=== PATIENT | female | born 1965 | race Caucasian/White ===

== ENCOUNTER → 2020-04-17 | Outpatient (CLI) | payer BC ==
[2020-04-17 13:31] LABS: BASOPHILS % 0.7 % (0.0-2.0); HEMATOCRIT. 35.8 % (36.0-48.0); HEMOGLOBIN. 11.8 g/dL (12.0-16.0); LYMPHOCYTES % 24.5 % (20.0-50.0); MEAN CORPUSCULAR HEMOGLOBIN 27.4 pg (28.0-32.0); MEAN CORPUSCULAR VOLUME 83.4 fL (81.0-99.0); MEAN PLATELET VOLUME 8.7 fl (7.4-10.4); NEUTROPHILS % 63.8 % (40.0-76.0); PLATELET 331 x1000/uL (130-400); RED CELL DISTRIBUTION WIDTH 14.4 % (11.6-14.6)
[2020-04-17 13:38] LABS: CHLORIDE 105 mEq/L (98-107)
[2020-04-17 13:45] LABS: CLARITY URINE CLOUDY (CLEAR); COLOR URINE YELLOW (YELLOW); KETONES URINE NEGATIVE (NEGATIVE); LDL CHOLESTEROL 157 mg/dL (5-100); LEUKOCYTE ESTERASE URINE 2+ (NEGATIVE); NITRITE URINE NEGATIVE (NEGATIVE); OCCULT BLOOD URINE 3+ (NEGATIVE); PH URINE 5.5 (4.5-8.0); PROTEIN URINE 2+ (NEGATIVE); SPECIFIC GRAVITY URINE 1.023 (1.005-1.030); UROBILINOGEN URINE 0.2 E.U./dL (0.2-1.0)
[2020-04-17 13:47] LABS: HDL CHOLESTEROL 64 mg/dL (40-59)
[2020-04-17 13:52] LABS: T4 FREE 0.91 ng/dL (0.76-1.46)
[2020-04-17 14:08] LABS: FOLIC ACID (FOLATE) SERUM 18.4 ng/mL (>5.38)
[2020-04-18 08:09] LABS: THYROID PEROXIDASE ANTIBODY < 9 IU/mL (0-34); VITAMIN D 25-OH 37.2 ng/mL (30.0-100.0)
[2020-04-18 08:09] LABS: MICROALBUMIN RANDOM URINE 214.3 ug/mL (Not Estab.)
== END | disposition home or self-care (01) ==
LOC: LAB 12:47
PROVIDERS: ATTEND Family Medicine
DX: E03.9 Hypothyroidism, unspecified (principal); E11.9 Type 2 diabetes mellitus without complications; R42 Dizziness and giddiness; E78.5 Hyperlipidemia, unspecified; R53.83 Other fatigue; Z12.11 Encounter for screening for malignant neoplasm of colon; Z13.29 Encounter for screening for other suspected endocrine disorder
CPT/HCPCS: 36415; 80053; 80061; 81003; 82043; 82306; 82570; 82607; 82746; 83036; 84439; 84443; 84479; 85025; 86376

== ENCOUNTER → 2020-08-26 | Outpatient (CLI) | payer BC ==
[~2020-08-26] MED LIST: SULF-292 MT
[2020-08-26 11:30] LABS: CHLORIDE 107 mEq/L (98-107)
[2020-08-26 11:37] LABS: LDL CHOLESTEROL 113 mg/dL (5-100)
[2020-08-26 11:38] LABS: HDL CHOLESTEROL 59 mg/dL (40-59)
[2020-08-26 11:40] LABS: T4 FREE 0.83 ng/dL (0.76-1.46)
[2020-08-26 13:36] LABS: CLARITY URINE CLEAR (CLEAR); COLOR URINE YELLOW (YELLOW); KETONES URINE NEGATIVE (NEGATIVE); LEUKOCYTE ESTERASE URINE 1+ (NEGATIVE); NITRITE URINE NEGATIVE (NEGATIVE); OCCULT BLOOD URINE 2+ (NEGATIVE); PH URINE 5.5 (4.5-8.0); PROTEIN URINE 2+ (NEGATIVE); SPECIFIC GRAVITY URINE 1.022 (1.005-1.030); UROBILINOGEN URINE 0.2 E.U./dL (0.2-1.0)
== END | disposition home or self-care (01) ==
LOC: LAB 10:22
PROVIDERS: ATTEND Physician Assistant Medical
DX: E11.9 Type 2 diabetes mellitus without complications (principal); E78.5 Hyperlipidemia, unspecified; E03.9 Hypothyroidism, unspecified; E55.9 Vitamin D deficiency, unspecified; R80.9 Proteinuria, unspecified; N39.0 Urinary tract infection, site not specified
CPT/HCPCS: 36415; 80053; 80061; 81003; 82306; 83036; 84439; 84443; 84481

== ENCOUNTER → 2020-08-29 | Outpatient (CLI) | payer BC | END | disposition home or self-care (01) | LOC: MAMMO 09:35 | PROVIDERS: ATTEND Family Medicine | DX: Z12.31 Encounter for screening mammogram for malignant neoplasm of breast (principal); Z20.822 Contact with and (suspected) exposure to COVID-19; N64.89 Other specified disorders of breast; R59.0 Localized enlarged lymph nodes | CPT/HCPCS: 77067; 87426 ==

== ENCOUNTER 2020-09-15 13:28 | Emergency (ER) | payer BC ==
[~2020-09-15] VITALS: Ht 162.6 cm; Wt 65.0 kg
[2020-09-15] MEDS ORDERED: IBUPROFEN 400MG TABLET PO ONE (13:45)
[2020-09-15] MEDS ORDERED: SULF-292 MT (15:04)
[2020-09-15 15:10] VITALS: BP 132/77
== END 2020-09-15 15:11 | disposition home or self-care (01) ==
LOC: ER 13:28
DX: L03.115 Cellulitis of right lower limb (principal); S93.691A Other sprain of right foot, initial encounter; W11.XXXA Fall on and from ladder, initial encounter; Y93.89 Activity, other specified; Y92.89 Other specified places as the place of occurrence of the external cause
CPT/HCPCS: 73630; 99283

== ENCOUNTER 2020-12-04 11:00 | Inpatient (IN) | payer BC ==
[~2020-12-04] VITALS: Ht 160 cm; Wt 65.4 kg
[2020-12-04 11:40] LABS: BASOPHILS % 0.6 % (0.0-2.0); EOSINOPHILS % 0.8 % (0.0-5.0); HEMATOCRIT. 36.9 % (36.0-48.0); HEMOGLOBIN. 12.5 g/dL (12.0-16.0); LYMPHOCYTES % 22.2 % (20.0-50.0); MEAN CORPUSCULAR HEMOGLOBIN 27.8 pg (28.0-32.0); MEAN PLATELET VOLUME 7.9 fl (7.4-10.4); MONOCYTES % 11.1 % (2.0-8.0); NEUTROPHILS % 65.3 % (40.0-76.0); PLATELET 370 x1000/uL (130-400); RED BLOOD CELL COUNT 4.49 mill/uL (4.2-5.4); RED CELL DISTRIBUTION WIDTH 14.6 % (11.6-14.6)
[2020-12-04 11:46] LABS: CHLORIDE 108 mEq/L (98-107)
[2020-12-04] MEDS ORDERED: ENALAPRIL 2.5MG/2ML VIAL 2ML IV ONE (13:45)
[2020-12-04] MEDS ORDERED: ENALAPRIL 1.25MG/ML VIAL 1ML IV ONE ×2 (13:45→14:45)
[2020-12-04] MEDS ORDERED: FUROSEMIDE 40MG/4ML VIAL IVP ONE (13:45)
[2020-12-04 14:02] LABS: BG BASE EXCESS -2.9 mmol/L (-2.0-2.0); BG CARBOXYHEMOGLOBIN 0.4 % (0.5-1.5); BG DEOXYHEMOGLOBIN 2.1 % (0.0-5.0); BG FRACTION INSPIRED OXYGEN 30; BG HCO3 ACT 22.6 mmol/L (22.0-26.0); BG METHEMOGLOBIN 0.3 % (0.0-1.5); BG OXYGEN SATURATION 97.9 % (92.0-98.5); BG OXYHEMOGLOBIN 97.2 % (94.0-97.0); BG PCO2 41.6 mmHg (35.0-45.0); BG PH 7.352 (7.350-7.450); BG PO2 104.1 mmHg (75.0-100.0); BG SAMPLE SITE RIGHT RADIAL; BG TOTAL HEMOGLOBIN 13.8 g/dL (12.0-18.0); BG VENT MODE NASAL CANNULA
[2020-12-04] MEDS ORDERED: CLONIDINE 0.1MG TABLET PO PRN (15:00)
[2020-12-04] MEDS ORDERED: ACETAMINOPHEN 325MG TABLET PO PRN (15:00)
[2020-12-04] MEDS ORDERED: IPRATROPIUM/ALBUTEROL 0.5-3(2.5)MG/3ML NEB HHN PRN (15:00)
[2020-12-04] MEDS ORDERED: ONDANSETRON HCL 4MG/2ML INJ IV PRN (15:00)
[2020-12-04] MEDS ORDERED: DOCUSATE SODIUM 100MG CAPSULE PO PRN (15:00)
[2020-12-04] MEDS ORDERED: LORAZEPAM 0.5MG TABLET PO PRN (15:00)
[2020-12-04] MEDS ORDERED: HYDROCODONE/ACETAMINOPHEN 5/325MG TABLET PO PRN (15:00)
[2020-12-04] MEDS: FUROSEMIDE 40MG/4ML VIAL IV SCH ×2 (15:21→17:00)
[2020-12-04 17:35] VITALS: BP 142/86
[2020-12-04 17:36] VITALS: BP 142/80
[2020-12-04 20:06] VITALS: BP 142/88
[2020-12-04 22:21] VITALS: BP 135/83
[2020-12-05] VITALS (15 sets, daily range): BP systolic 95–132; BP diastolic 58–81
[2020-12-05] MEDS ORDERED: LEVO25TA7 PO (04:56)
[2020-12-05 06:26] LABS: BASOPHILS % 0.8 % (0.0-2.0); EOSINOPHILS % 0.5 % (0.0-5.0); HEMATOCRIT. 38.2 % (36.0-48.0); HEMOGLOBIN. 12.8 g/dL (12.0-16.0); LYMPHOCYTES % 17.1 % (20.0-50.0); MEAN CORPUSCULAR HEMOGLOBIN 27.3 pg (28.0-32.0); MEAN CORPUSCULAR VOLUME 81.4 fL (81.0-99.0); MEAN PLATELET VOLUME 8.5 fl (7.4-10.4); MONOCYTES % 10.1 % (2.0-8.0); NEUTROPHILS % 71.5 % (40.0-76.0); PLATELET 370 x1000/uL (130-400); RED BLOOD CELL COUNT 4.69 mill/uL (4.2-5.4); RED CELL DISTRIBUTION WIDTH 14.3 % (11.6-14.6)
[2020-12-05 06:31] LABS: CHLORIDE 106 mEq/L (98-107)
[2020-12-05] MEDS ORDERED: POTASSIUM CHLORIDE 20MEQ TABLET SR PO NR (08:00)
[2020-12-05] MEDS ORDERED: PHENYLEPHRINE 100MCG/ML 10ML VIAL (CATH LAB) IV ONE (08:03)
[2020-12-05] MEDS ORDERED: HEPARIN SODIUM 1,000 UNIT/1ML VIAL IV ONE (08:03)
[2020-12-05] MEDS ORDERED: NITROGLYCERIN 50MCG/ML 10ML VIAL (CATH LAB) IV ONE (08:03)
[2020-12-05] MEDS ORDERED: NICARDIPINE 100MCG/ML 10ML VIAL (CATH LAB) IV ONE (08:03)
[2020-12-05 08:47] LABS: *BARBITURATES SCREEN URINE NEGATIVE (NEGATIVE)
[2020-12-05 08:48] LABS: *AMPHETAMINES SCREEN URINE NEGATIVE (NEGATIVE); *BENZODIAZEPINES SCREEN URINE NEGATIVE (NEGATIVE); *COCAINE SCREEN URINE NEGATIVE (NEGATIVE); METHADONE URINE SCREEN NEGATIVE (NEGATIVE); OPIATES URINE SCREEN NEGATIVE (NEGATIVE); PHENCYCLIDINE URINE SCREEN NEGATIVE (NEGATIVE)
[2020-12-05 08:49] LABS: CANNABINOID URINE SCREEN NEGATIVE (NEGATIVE)
[2020-12-05] MEDS: FUROSEMIDE 40MG/4ML VIAL IV SCH ×2 (09:13→16:34)
[2020-12-05] MEDS ORDERED: FENTANYL CITRATE/PF 50MCG/ML 2ML VIAL ONE (11:21)
[2020-12-05] MEDS ORDERED: LIDOCAINE HCL 1% 20ML VIAL (Pyxis) INJ ONE (11:22)
[2020-12-05] MEDS ORDERED: MIDAZOLAM HCL 2 MG/2 ML VIAL ONE (11:22)
[2020-12-05] MEDS ORDERED: IODIXANOL 320MG/ML 100 ML BOTTLE IV ONE (11:23)
[2020-12-05] MEDS ORDERED: IOHEXOL-300 100 ML BOTTLE ONE (12:15)
[2020-12-05] MEDS ORDERED: ATROPINE SULFATE 0.1MG/ML 10ML DISP.SYRIN ONE (12:26)
[2020-12-05] MEDS ORDERED: ASPIRIN 325MG TABLET ONE (12:32)
[2020-12-05] MEDS ORDERED: CLOPIDOGREL 75MG TABLET ONE (12:32)
[2020-12-05] MEDS: SPIRONOLACTONE 25MG TABLET PO SCH (13:11)
[2020-12-05] MEDS ORDERED: ATROPINE SULFATE 1MG/10ML SYR IV PRN (13:15)
[2020-12-05] MEDS ORDERED: LEVOTHYROXINE SODIUM 25MCG TABLET PO SCH (15:30)
[2020-12-05] MEDS: LEVOTHYROXINE SODIUM 25MCG TABLET PO SCH (16:35)
[2020-12-05] MEDS: CARVEDILOL 3.125 MG TABLET PO SCH (21:00)
[2020-12-06] VITALS (12 sets, daily range): BP systolic 91–110; BP diastolic 53–66
[2020-12-06 05:59] LABS: BASOPHILS % 0.4 % (0.0-2.0); EOSINOPHILS % 1.5 % (0.0-5.0); HEMATOCRIT. 39.8 % (36.0-48.0); HEMOGLOBIN. 13.1 g/dL (12.0-16.0); LYMPHOCYTES % 16.1 % (20.0-50.0); MEAN PLATELET VOLUME 8.4 fl (7.4-10.4); MONOCYTES % 13.8 % (2.0-8.0); NEUTROPHILS % 68.2 % (40.0-76.0); PLATELET 356 x1000/uL (130-400); RED BLOOD CELL COUNT 4.86 mill/uL (4.2-5.4); RED CELL DISTRIBUTION WIDTH 14.8 % (11.6-14.6)
[2020-12-06 06:32] LABS: HEPATITIS B SURFACE ANTIGEN NEGATIVE
[2020-12-06 07:01] LABS: HEPATITIS A AB IGM NEGATIVE (NEGATIVE)
[2020-12-06] MEDS ORDERED: POTASSIUM CHLORIDE 20MEQ/PACKET PO SCH (08:45)
[2020-12-06] MEDS: SPIRONOLACTONE 25MG TABLET PO SCH (08:50)
[2020-12-06] MEDS: LISINOPRIL 5MG TABLET PO SCH (08:50)
[2020-12-06] MEDS: FUROSEMIDE 40MG/4ML VIAL IV SCH ×2 (08:59→17:01)
[2020-12-06] MEDS: ASPIRIN 81MG TABLET PO SCH (08:59)
[2020-12-06] MEDS: LEVOTHYROXINE SODIUM 25MCG TABLET PO SCH (08:59)
[2020-12-06] MEDS: CARVEDILOL 3.125 MG TABLET PO SCH ×2 (09:00→21:00)
[2020-12-06] MEDS: CLOPIDOGREL 75MG TABLET PO SCH (09:00)
[2020-12-06] MEDS ORDERED: ASPI-1160 PO (11:16)
[2020-12-06] MEDS ORDERED: FURO40TA5 MT (11:16)
[2020-12-06] MEDS ORDERED: COR3 PO (11:16)
[2020-12-06] MEDS ORDERED: CLOP75TA15 PO (11:16)
[2020-12-06] MEDS ORDERED: LISI-186 PO (11:16)
[2020-12-06] MEDS ORDERED: SPIR25TA PO (11:16)
[2020-12-06 21:30] LABS: CLARITY URINE CLEAR (CLEAR); COLOR URINE YELLOW (YELLOW); KETONES URINE NEGATIVE (NEGATIVE); LEUKOCYTE ESTERASE URINE 1+ (NEGATIVE); NITRITE URINE NEGATIVE (NEGATIVE); OCCULT BLOOD URINE TRACE (NEGATIVE); PROTEIN URINE NEGATIVE (NEGATIVE); UROBILINOGEN URINE 0.2 E.U./dL (0.2-1.0)
[2020-12-07] VITALS (13 sets, daily range): BP systolic 95–116; BP diastolic 30–77
[2020-12-07 06:01] LABS: BASOPHILS % 0.7 % (0.0-2.0); HEMATOCRIT. 38.7 % (36.0-48.0); LYMPHOCYTES % 23.1 % (20.0-50.0); MEAN CORPUSCULAR HEMOGLOBIN 27.7 pg (28.0-32.0); MEAN CORPUSCULAR VOLUME 82.4 fL (81.0-99.0); MEAN PLATELET VOLUME 8.4 fl (7.4-10.4); MONOCYTES % 13.1 % (2.0-8.0); NEUTROPHILS % 61.1 % (40.0-76.0); PLATELET 353 x1000/uL (130-400); RED BLOOD CELL COUNT 4.69 mill/uL (4.2-5.4); RED CELL DISTRIBUTION WIDTH 14.5 % (11.6-14.6)
[2020-12-07 06:17] LABS: CHLORIDE 102 mEq/L (98-107)
[2020-12-07] MEDS: LEVOTHYROXINE SODIUM 50MCG TABLET PO SCH (07:03)
[2020-12-07] MEDS: SPIRONOLACTONE 25MG TABLET PO SCH (09:00)
[2020-12-07] MEDS: LISINOPRIL 5MG TABLET PO SCH (09:00)
[2020-12-07] MEDS: CARVEDILOL 3.125 MG TABLET PO SCH ×2 (09:00→20:30)
[2020-12-07] MEDS: ASPIRIN 81MG TABLET PO SCH (09:09)
[2020-12-07] MEDS: FUROSEMIDE 40MG/4ML VIAL IV SCH ×2 (09:09→17:02)
[2020-12-07] MEDS: CLOPIDOGREL 75MG TABLET PO SCH (09:09)
[2020-12-07] MEDS: POTASSIUM CHLORIDE 20MEQ TABLET SR PO SCH (09:10)
[2020-12-08] VITALS (9 sets, daily range): BP systolic 102–139; BP diastolic 62–88
[2020-12-08] MEDS: LEVOTHYROXINE SODIUM 50MCG TABLET PO SCH (06:03)
[2020-12-08 07:44] LABS: BASOPHILS % 0.5 % (0.0-2.0); EOSINOPHILS % 2.3 % (0.0-5.0); HEMATOCRIT. 39.6 % (36.0-48.0); HEMOGLOBIN. 13.2 g/dL (12.0-16.0); LYMPHOCYTES % 26.3 % (20.0-50.0); MEAN CORPUSCULAR HEMOGLOBIN 27.4 pg (28.0-32.0); MEAN CORPUSCULAR VOLUME 82.3 fL (81.0-99.0); MEAN PLATELET VOLUME 8.5 fl (7.4-10.4); MONOCYTES % 13.1 % (2.0-8.0); NEUTROPHILS % 57.8 % (40.0-76.0); PLATELET 381 x1000/uL (130-400); RED BLOOD CELL COUNT 4.81 mill/uL (4.2-5.4); RED CELL DISTRIBUTION WIDTH 14.6 % (11.6-14.6)
[2020-12-08 08:08] LABS: *CREATININE RANDOM URINE 28.5 mg/dL (Not Estab.); MICROALBUMIN RANDOM URINE <3.0 ug/mL (Not Estab.)
[2020-12-08 08:27] LABS: CHLORIDE 98 mEq/L (98-107)
[2020-12-08] MEDS: CARVEDILOL 3.125 MG TABLET PO SCH (08:27)
[2020-12-08] MEDS: LISINOPRIL 5MG TABLET PO SCH (08:28)
[2020-12-08] MEDS: SPIRONOLACTONE 25MG TABLET PO SCH (08:38)
[2020-12-08] MEDS: ASPIRIN 81MG TABLET PO SCH (08:38)
[2020-12-08] MEDS: POTASSIUM CHLORIDE 20MEQ TABLET SR PO SCH (08:38)
[2020-12-08] MEDS: CLOPIDOGREL 75MG TABLET PO SCH (08:38)
[2020-12-08] MEDS ORDERED: ATOR20TA65 MT (08:57)
[2020-12-08] MEDS ORDERED: FUROSEMIDE 40MG TABLET PO SCH (18:00)
[2020-12-08] MEDS ORDERED: CARVEDILOL 6.25 MG TABLET PO SCH (21:00)
== END 2020-12-08 15:05 | disposition home or self-care (01) | DRG 246 ==
LOC: ER 11:00 → 3WST 13:50 → EDBEDREQ 13:54 → EDBEDREQTM 13:54 → ENRESERV 14:47 → EDBEDREQSVC 15:01
PROVIDERS: ADMIT Internal Medicine; ATTEND Internal Medicine
PROC: B2111ZZ Fluoroscopy of Multiple Coronary Arteries using Low Osmolar Contrast (ICD-10-PCS; principal; 2020-12-05)
PROC: 027034Z Dilation of Coronary Artery, One Artery with Drug-eluting Intraluminal Device, Percutaneous Approach (ICD-10-PCS; 2020-12-05)
PROC: 4A023N7 Measurement of Cardiac Sampling and Pressure, Left Heart, Percutaneous Approach (ICD-10-PCS; 2020-12-05)
DX: I11.0 Hypertensive heart disease with heart failure (principal); J96.01 Acute respiratory failure with hypoxia; N17.9 Acute kidney failure, unspecified; N13.30 Unspecified hydronephrosis; E87.1 Hypo-osmolality and hyponatremia; N13.2 Hydronephrosis with renal and ureteral calculous obstruction; I50.23 Acute on chronic systolic (congestive) heart failure; I42.0 Dilated cardiomyopathy; I25.10 Atherosclerotic heart disease of native coronary artery without angina pectoris; E78.1 Pure hyperglyceridemia; E03.9 Hypothyroidism, unspecified; I16.0 Hypertensive urgency; E87.6 Hypokalemia; E11.9 Type 2 diabetes mellitus without complications; I27.29 Other secondary pulmonary hypertension; J40 Bronchitis, not specified as acute or chronic; I45.9 Conduction disorder, unspecified; K57.30 Diverticulosis of large intestine without perforation or abscess without bleeding; K80.20 Calculus of gallbladder without cholecystitis without obstruction; Z20.822 Contact with and (suspected) exposure to COVID-19; Z88.2 Allergy status to sulfonamides
CPT/HCPCS: 36415; 36600; 71045; 71275; 74176; 76700; 78227; 80048; 80053; 80061; 80076; 80305; 81003; 82043; 82375; 82570; 82805; 83036; 83880; 84145; 84443; 84484; 85025; 85347; 85379; 86705; 86709; 86803; 87340; 87426; 92928; 93005; 93306; 93458; 93970; 99285; A9537; C1769; C1874; C1887; C1893; J0461; J1200; J1644; J1940; J2250; J2370; J2405; J3010; J3490; Q9967

== ENCOUNTER → 2021-02-09 | Outpatient (CLI) | payer BC ==
[~2021-02-09] MED LIST changes: +ASPI-1160 PO; +ATOR20TA65 MT; +CLOP75TA15 PO; +COR3 PO; +FURO40TA5 MT; +LEVO25TA7 PO; +LISI-186 PO; +SPIR25TA PO; -SULF-292 MT
== END | disposition home or self-care (01) ==
LOC: RAD 10:13
PROVIDERS: ATTEND Urology
DX: N20.2 Calculus of kidney with calculus of ureter (principal); K80.20 Calculus of gallbladder without cholecystitis without obstruction
CPT/HCPCS: 74018

== ENCOUNTER → 2021-02-20 | Outpatient (CLI) | payer BC ==
[2021-02-20 11:21] LABS: BASOPHILS % 0.4 % (0.0-2.0); EOSINOPHILS % 0.8 % (0.0-5.0); HEMATOCRIT. 35.6 % (36.0-48.0); HEMOGLOBIN. 11.8 g/dL (12.0-16.0); LYMPHOCYTES % 25.6 % (20.0-50.0); MEAN CORPUSCULAR HEMOGLOBIN 27.8 pg (28.0-32.0); MEAN CORPUSCULAR VOLUME 83.7 fL (81.0-99.0); MEAN PLATELET VOLUME 8.5 fl (7.4-10.4); MONOCYTES % 11.4 % (2.0-8.0); NEUTROPHILS % 61.8 % (40.0-76.0); PLATELET 319 x1000/uL (130-400); RED BLOOD CELL COUNT 4.26 mill/uL (4.2-5.4); RED CELL DISTRIBUTION WIDTH 15.1 % (11.6-14.6)
[2021-02-20 11:23] LABS: CLARITY URINE CLEAR (CLEAR); COLOR URINE YELLOW (YELLOW); KETONES URINE NEGATIVE (NEGATIVE); LEUKOCYTE ESTERASE URINE 2+ (NEGATIVE); NITRITE URINE NEGATIVE (NEGATIVE); OCCULT BLOOD URINE NEGATIVE (NEGATIVE); PH URINE 6.5 (4.5-8.0); PROTEIN URINE NEGATIVE (NEGATIVE); SPECIFIC GRAVITY URINE 1.009 (1.005-1.030); UROBILINOGEN URINE 0.2 E.U./dL (0.2-1.0)
[2021-02-20 11:29] LABS: CHLORIDE 105 mEq/L (98-107)
[2021-02-20 11:36] LABS: HDL CHOLESTEROL 54 mg/dL (40-59); LDL CHOLESTEROL 73 mg/dL (5-100)
[2021-02-20 11:38] LABS: T4 FREE 1.22 ng/dL (0.76-1.46)
== END | disposition home or self-care (01) ==
LOC: LAB 10:44
PROVIDERS: ATTEND Family Medicine
DX: E11.21 Type 2 diabetes mellitus with diabetic nephropathy (principal); I10 Essential (primary) hypertension; E03.9 Hypothyroidism, unspecified; E78.5 Hyperlipidemia, unspecified; E55.9 Vitamin D deficiency, unspecified
CPT/HCPCS: 36415; 80053; 80061; 81003; 82306; 83036; 84439; 84443; 84481; 85025

== ENCOUNTER → 2021-03-04 | Outpatient (CLI) | payer BC | END | disposition home or self-care (01) | LOC: CARD 09:42 | PROVIDERS: ATTEND Internal Medicine | DX: I34.0 Nonrheumatic mitral (valve) insufficiency (principal); I42.0 Dilated cardiomyopathy; I51.7 Cardiomegaly; I50.9 Heart failure, unspecified | CPT/HCPCS: 93306 ==

== ENCOUNTER 2021-04-14 06:25 | Inpatient (IN) | payer BC ==
[~2021-04-14] VITALS: Ht 160 cm; Wt 65.6 kg
[2021-04-14] VITALS (13 sets, daily range): BP systolic 99–128; BP diastolic 52–79
[2021-04-14 07:26] LABS: HEMATOCRIT 37.5 % (36.0-48.0); HEMOGLOBIN 12.5 g/dL (12.0-16.0); MEAN CORPUSCULAR HEMOGLOBIN 28.8 pg (28.0-32.0); MEAN CORPUSCULAR VOLUME 86.6 fL (81.0-99.0); PLATELET 321 x1000/uL (130-400); RED BLOOD CELL COUNT 4.33 mill/uL (4.2-5.4); RED CELL DISTRIBUTION WIDTH 13.9 % (11.6-14.6)
[2021-04-14 07:35] LABS: PARTIAL THROMBOPLASTIN TIME 34.7 sec (23.4-31.0); PROTHROMBIN TIME 10.8 sec (9.6-11.0)
[2021-04-14] MEDS ORDERED: HEPARIN 1,000 UNITS PREMIX 1,500 ML IV ONE (07:45)
[2021-04-14] MEDS ORDERED: LIDOCAINE HCL 1% 30ML VIAL (10MG/ML) ONE ×2 (07:45→12:24)
[2021-04-14] MEDS ORDERED: IODIXANOL 320MG/ML 100 ML BOTTLE IV ONE ×2 (08:15→12:24)
[2021-04-14] MEDS ORDERED: CEFAZOLIN 1000MG PREMIX 50 ML IV ONE (08:28)
[2021-04-14] MEDS ORDERED: GENTAMICIN SULF 40MG/ML 2ML VIAL ONE (08:29)
[2021-04-14] MEDS ORDERED: GENTAMICIN/NS IRRIGATION 500 ML IR ONE (08:30)
[2021-04-14] MEDS ORDERED: FENTANYL CITRATE/PF 50MCG/ML 5ML VIAL ONE ×2 (12:22→13:15)
[2021-04-14] MEDS ORDERED: MIDAZOLAM HCL 5 MG/5 ML VIAL ONE ×2 (12:23→13:15)
[2021-04-14] MEDS ORDERED: IOHEXOL-300 100 ML BOTTLE ONE (12:23)
[2021-04-14] MEDS ORDERED: HEPARIN 1000 UNITS/ML 10ML ONE (13:05)
[2021-04-14] MEDS ORDERED: FENTANYL CITRATE/PF 50MCG/ML 2ML VIAL ONE (13:14)
[2021-04-14] MEDS ORDERED: MIDAZOLAM HCL 2 MG/2 ML VIAL ONE (13:14)
[2021-04-14] MEDS ORDERED: HYDROMORPHONE HCL/PF 2MG/ML CPJ IV NR (14:40)
[2021-04-14] MEDS ORDERED: NALOXONE HCL 0.4MG/ML VIAL IV PRN (17:15)
[2021-04-14] MEDS ORDERED: ATORVASTATIN CALCIUM 20MG TABLET PO SCH (21:00)
[2021-04-14] MEDS: CARVEDILOL 3.125 MG TABLET PO SCH (21:16)
[2021-04-15] VITALS (9 sets, daily range): BP systolic 100–112; BP diastolic 55–68
[2021-04-15] MEDS: HYDROCODONE/ACETAMINOPHEN 5/325MG TABLET PO PRN ×2 (04:31→09:17)
[2021-04-15 06:26] LABS: BASOPHILS % 0.3 % (0.0-2.0); EOSINOPHILS % 0.7 % (0.0-5.0); HEMATOCRIT. 32.6 % (36.0-48.0); HEMOGLOBIN. 10.8 g/dL (12.0-16.0); LYMPHOCYTES % 19.1 % (20.0-50.0); MEAN CORPUSCULAR HEMOGLOBIN 28.9 pg (28.0-32.0); MEAN CORPUSCULAR VOLUME 87.3 fL (81.0-99.0); MEAN PLATELET VOLUME 8.9 fl (7.4-10.4); MONOCYTES % 8.4 % (2.0-8.0); NEUTROPHILS % 71.5 % (40.0-76.0); PLATELET 257 x1000/uL (130-400); RED BLOOD CELL COUNT 3.73 mill/uL (4.2-5.4); RED CELL DISTRIBUTION WIDTH 14.2 % (11.6-14.6)
[2021-04-15] MEDS ORDERED: LEVOTHYROXINE SODIUM 50MCG TABLET PO SCH (06:50)
[2021-04-15] MEDS ORDERED: ASPIRIN 81MG TABLET PO SCH (09:00)
[2021-04-15] MEDS: CARVEDILOL 3.125 MG TABLET PO SCH (09:00)
[2021-04-15] MEDS ORDERED: SPIRONOLACTONE 5MG/ML 1ML ORAL SYR(NEO) PO SCH (09:00)
[2021-04-15] MEDS ORDERED: FUROSEMIDE 40MG TABLET PO SCH (09:00)
[2021-04-15] MEDS ORDERED: CLOPIDOGREL 75MG TABLET PO SCH (09:00)
[2021-04-15] MEDS ORDERED: LISINOPRIL 5MG TABLET PO SCH (09:00)
[2021-04-15] MEDS ORDERED: SPIRONOLACTONE 25MG TABLET PO SCH (09:00)
== END 2021-04-15 14:45 | disposition home or self-care (01) | DRG 265 ==
LOC: CCL 06:25 → 3WST 06:26
PROVIDERS: ADMIT Internal Medicine Clinical Cardiac Electrophysiology; ATTEND Internal Medicine Clinical Cardiac Electrophysiology
PROC: 0JH607Z Insertion of Cardiac Resynchronization Pacemaker Pulse Generator into Chest Subcutaneous Tissue and Fascia, Open Approach (ICD-10-PCS; principal; 2021-04-14)
PROC: B517YZZ Fluoroscopy of Left Subclavian Vein using Other Contrast (ICD-10-PCS; 2021-04-14)
PROC: 02HK3KZ Insertion of Defibrillator Lead into Right Ventricle, Percutaneous Approach (ICD-10-PCS; 2021-04-14)
PROC: 02H63KZ Insertion of Defibrillator Lead into Right Atrium, Percutaneous Approach (ICD-10-PCS; 2021-04-14)
PROC: 4A023N6 Measurement of Cardiac Sampling and Pressure, Right Heart, Percutaneous Approach (ICD-10-PCS; 2021-04-14)
PROC: 4A0234Z Measurement of Cardiac Electrical Activity, Percutaneous Approach (ICD-10-PCS; 2021-04-14)
DX: I44.7 Left bundle-branch block, unspecified (principal); I50.22 Chronic systolic (congestive) heart failure; I42.0 Dilated cardiomyopathy; I25.10 Atherosclerotic heart disease of native coronary artery without angina pectoris; I11.0 Hypertensive heart disease with heart failure; E11.9 Type 2 diabetes mellitus without complications; Z86.16 Personal history of COVID-19; Z80.1 Family history of malignant neoplasm of trachea, bronchus and lung
CPT/HCPCS: 33225; 33249; 36415; 71045; 75820; 80048; 85025; 85027; 93005; 93451; 93641; A4565; C1769; C1887; C1892; C1893; J0690; J1170; J1580; J1644; J1885; J2250; J2704; J3010; J3490; J7040; Q9967

== ENCOUNTER 2021-06-03 22:05 | Inpatient (IN) | payer BC ==
[2021-06-03 22:30] VITALS: BP 131/74
[2021-06-03] MEDS ORDERED: ONDANSETRON HCL 4MG TABLET PO PRN (23:45)
[2021-06-03] MEDS ORDERED: KETOROLAC 30MG/ML VIAL IV PRN (23:45)
[2021-06-03] MEDS ORDERED: HYDROCODONE/APAP 7.5/325MG 1 TAB TABLET PO PRN (23:45)
[2021-06-03] MEDS ORDERED: ACETAMINOPHEN 325MG TABLET PO PRN (23:45)
[2021-06-04] VITALS: BP 114/66
[2021-06-04] MEDS ORDERED: SODIUM CHLORIDE 0.9% 1,000 ML IV SCH (01:30)
[2021-06-04] MEDS ORDERED: NALOXONE HCL 0.4MG/ML VIAL IV PRN (01:30)
[2021-06-04] MEDS ORDERED: LEVOTHYROXINE SODIUM 50MCG TABLET PO SCH (07:10)
[2021-06-04 07:14] LABS: BASOPHILS % 0.3 % (0.0-2.0); EOSINOPHILS % 0.5 % (0.0-5.0); HEMATOCRIT. 35.2 % (36.0-48.0); HEMOGLOBIN. 11.9 g/dL (12.0-16.0); LYMPHOCYTES % 17.6 % (20.0-50.0); MEAN CORPUSCULAR HEMOGLOBIN 29.3 pg (28.0-32.0); MEAN CORPUSCULAR VOLUME 86.7 fL (81.0-99.0); MEAN PLATELET VOLUME 8.5 fl (7.4-10.4); NEUTROPHILS % 69.6 % (40.0-76.0); PLATELET 306 x1000/uL (130-400); RED BLOOD CELL COUNT 4.07 mill/uL (4.2-5.4); RED CELL DISTRIBUTION WIDTH 13.2 % (11.6-14.6)
[2021-06-04 08:00] VITALS: BP 111/69
[2021-06-04] MEDS ORDERED: CARVEDILOL 3.125 MG TABLET PO SCH (09:00)
[2021-06-04] MEDS: LISINOPRIL 5MG TABLET PO SCH ×2 (09:00→09:37)
[2021-06-04] MEDS ORDERED: CLOPIDOGREL 75MG TABLET PO SCH (09:00)
[2021-06-04] MEDS ORDERED: FUROSEMIDE 40MG TABLET PO SCH (09:00)
[2021-06-04] MEDS ORDERED: SPIRONOLACTONE 25MG TABLET PO SCH (09:00)
[2021-06-04 11:15] VITALS: BP 111/69
[2021-06-04] MEDS ORDERED: ATORVASTATIN CALCIUM 20MG TABLET PO SCH (21:00)
== END 2021-06-04 11:50 | disposition home or self-care (01) | DRG 690 ==
LOC: 8WST 22:05
PROVIDERS: ADMIT Hospitalist; ATTEND Hospitalist
DX: N13.6 Pyonephrosis (principal); I42.0 Dilated cardiomyopathy; I25.10 Atherosclerotic heart disease of native coronary artery without angina pectoris; I27.29 Other secondary pulmonary hypertension; E03.9 Hypothyroidism, unspecified; I10 Essential (primary) hypertension; Z95.810 Presence of automatic (implantable) cardiac defibrillator; Z98.61 Coronary angioplasty status
CPT/HCPCS: 36415; 74176; 76770; 80048; 85025; 87077; 87186

== ENCOUNTER → 2021-06-11 | Outpatient (CLI) | payer BC ==
[2021-06-11 11:10] LABS: CLARITY URINE CLEAR (CLEAR); COLOR URINE YELLOW (YELLOW); KETONES URINE NEGATIVE (NEGATIVE); LEUKOCYTE ESTERASE URINE 1+ (NEGATIVE); NITRITE URINE NEGATIVE (NEGATIVE); OCCULT BLOOD URINE TRACE (NEGATIVE); PH URINE 5.5 (4.5-8.0); PROTEIN URINE NEGATIVE (NEGATIVE); SPECIFIC GRAVITY URINE 1.021 (1.005-1.030); UROBILINOGEN URINE 0.2 E.U./dL (0.2-1.0)
[2021-06-11 11:11] LABS: BASOPHILS % 0.5 % (0.0-2.0); EOSINOPHILS % 0.9 % (0.0-5.0); HEMOGLOBIN. 12.4 g/dL (12.0-16.0); LYMPHOCYTES % 24.5 % (20.0-50.0); MEAN CORPUSCULAR HEMOGLOBIN 29.2 pg (28.0-32.0); MEAN CORPUSCULAR VOLUME 86.8 fL (81.0-99.0); MONOCYTES % 7.3 % (2.0-8.0); NEUTROPHILS % 66.8 % (40.0-76.0); PLATELET 362 x1000/uL (130-400); RED BLOOD CELL COUNT 4.26 mill/uL (4.2-5.4); RED CELL DISTRIBUTION WIDTH 13.5 % (11.6-14.6)
[2021-06-11 11:28] LABS: CHLORIDE 105 mEq/L (98-107)
[2021-06-11 11:36] LABS: HDL CHOLESTEROL 61 mg/dL (40-59); LDL CHOLESTEROL 92 mg/dL (5-100)
[2021-06-11 11:58] LABS: VITAMIN B12 SERUM 621 pg/mL (211-911)
== END | disposition home or self-care (01) ==
LOC: COVVAC 10:32
PROVIDERS: ATTEND Family Medicine
DX: I10 Essential (primary) hypertension (principal); R73.03 Prediabetes; E30.9 Disorder of puberty, unspecified
CPT/HCPCS: 36415; 80053; 80061; 81003; 82306; 82607; 83036; 84439; 84443; 84481; 85025; 86376

== ENCOUNTER → 2021-06-30 | Outpatient (CLI) | payer BC ==
[2021-06-30 13:03] LABS: BASOPHILS % 0.5 % (0.0-2.0); EOSINOPHILS % 1.1 % (0.0-5.0); LYMPHOCYTES % 19.8 % (20.0-50.0); MEAN CORPUSCULAR HEMOGLOBIN 28.8 pg (28.0-32.0); MEAN CORPUSCULAR VOLUME 86.5 fL (81.0-99.0); MONOCYTES % 8.3 % (2.0-8.0); NEUTROPHILS % 70.3 % (40.0-76.0); PLATELET 359 x1000/uL (130-400); RED BLOOD CELL COUNT 4.51 mill/uL (4.2-5.4); RED CELL DISTRIBUTION WIDTH 13.4 % (11.6-14.6)
[2021-06-30 13:13] LABS: CHLORIDE 102 mEq/L (98-107)
[2021-06-30 13:17] LABS: PARTIAL THROMBOPLASTIN TIME 36.2 sec (23.4-31.0); PROTHROMBIN TIME 10.7 sec (9.6-11.0)
[2021-06-30 13:22] LABS: CLARITY URINE CLEAR (CLEAR); COLOR URINE YELLOW (YELLOW); KETONES URINE NEGATIVE (NEGATIVE); LEUKOCYTE ESTERASE URINE 2+ (NEGATIVE); NITRITE URINE POSITIVE (NEGATIVE); OCCULT BLOOD URINE TRACE (NEGATIVE); PH URINE 5.5 (4.5-8.0); PROTEIN URINE NEGATIVE (NEGATIVE); SPECIFIC GRAVITY URINE 1.009 (1.005-1.030); UROBILINOGEN URINE 0.2 E.U./dL (0.2-1.0)
== END | disposition home or self-care (01) ==
LOC: LAB 12:27
PROVIDERS: ATTEND Family Medicine
DX: Z01.812 Encounter for preprocedural laboratory examination (principal)
CPT/HCPCS: 36415; 80053; 81003; 85025; 93005

== ENCOUNTER 2021-07-16 09:37 | Inpatient (IN) | payer BC ==
[~2021-07-16] VITALS: Ht 160 cm; Wt 64.0 kg
[2021-07-16] MEDS ORDERED: LACTATED RINGERS 1,000 ML IV SCH (10:00)
[2021-07-16] MEDS ORDERED: ONDANSETRON HCL 4MG/2ML INJ IV PRN (13:30)
[2021-07-16] MEDS ORDERED: MEPERIDINE HCL/PF 25MG/ML CPJ IV PRN (13:30)
[2021-07-16] MEDS ORDERED: LABETALOL 5MG/ML SYR 20 MG/4 ML SYRINGE IV PRN (13:30)
[2021-07-16] MEDS: HYDROMORPHONE HCL/PF 2MG/ML CPJ IV PRN ×4 (14:18→14:42)
[2021-07-16] MEDS ORDERED: SODIUM CHLORIDE 0.9% 1,000 ML IV ONE ×2 (17:45→18:00)
[2021-07-16] MEDS ORDERED: DIGOXIN 500MCG/2ML AMP IV ONE (18:15)
[2021-07-16] MEDS ORDERED: DIGOXIN 500MCG/2ML AMP IV NR (18:30)
[2021-07-16] MEDS: METOPROLOL TARTRATE 5MG/5ML VIAL IV PRN ×2 (18:32→18:36)
[2021-07-16 18:42] LABS: HEMATOCRIT. 30.2 % (36.0-48.0); HEMOGLOBIN. 9.9 g/dL (12.0-16.0); MEAN CORPUSCULAR HEMOGLOBIN 28.6 pg (28.0-32.0); MEAN CORPUSCULAR VOLUME 86.8 fL (81.0-99.0); MEAN PLATELET VOLUME 7.2 fl (7.4-10.4); PLATELET 212 x1000/uL (130-400); RED BLOOD CELL COUNT 3.48 mill/uL (4.2-5.4); RED CELL DISTRIBUTION WIDTH 13.2 % (11.6-14.6)
[2021-07-16 19:08] LABS: PLATELET ESTIMATE NORMAL
[2021-07-16] MEDS ORDERED: POTASSIUM CHLORIDE 20MEQ TABLET SR PO NR (20:00)
[2021-07-16 20:42] VITALS: BP 86/52
[2021-07-16] MEDS ORDERED: ACETAMINOPHEN 325MG TABLET PO PRN (21:00)
[2021-07-16] MEDS ORDERED: MAGNESIUM/ALUMINUM HYDROXIDE/SIMETHICONE 30ML UDC PO PRN (21:00)
[2021-07-16] MEDS ORDERED: ZOLPIDEM TARTRATE 5MG TABLET PO PRN (21:00)
[2021-07-16] MEDS ORDERED: CLONIDINE 0.1MG TABLET PO PRN (21:00)
[2021-07-16] MEDS ORDERED: DIPHENHYDRAMINE 50MG/ML VIAL IV PRN (21:00)
[2021-07-16 21:15] VITALS: BP 88/48
[2021-07-16] MEDS: ATORVASTATIN CALCIUM 20MG TABLET PO SCH (21:15)
[2021-07-16] MEDS: CARVEDILOL 3.125 MG TABLET PO SCH (21:15)
[2021-07-16] MEDS ORDERED: CEFTRIAXONE 1 G PREMIX 50 ML IV SCH (22:00)
[2021-07-16 22:08] VITALS: BP 85/42
[2021-07-16 22:17] VITALS: BP 87/55
[2021-07-16] MEDS ORDERED: CEFTRIAXONE 1,000 MG in DEXTROSE 5% WATER 50 ML IV SCH (23:00)
[2021-07-16] MEDS: SODIUM CHLORIDE 0.9% INJ 3ML FLUSH IVF SCH (23:10)
[2021-07-16] MEDS: POTASSIUM CHLORIDE 20MEQ TABLET SR PO SCH (23:10)
[2021-07-17] VITALS (18 sets, daily range): BP systolic 68–94; BP diastolic 35–51
[2021-07-17] MEDS ORDERED: MAGNESIUM 2 G PREMIX 50 ML IV NR (01:00)
[2021-07-17] MEDS ORDERED: SODIUM CHLORIDE 0.9% 500 ML IV NR ×2 (01:30→15:30)
[2021-07-17] MEDS: ACETAMINOPHEN 325MG TABLET PO PRN ×3 (03:29→16:56)
[2021-07-17] MEDS: SODIUM CHLORIDE 0.9% 1,000 ML IV SCH ×2 (04:45→22:00)
[2021-07-17] MEDS: SODIUM CHLORIDE 0.9% INJ 3ML FLUSH IVF SCH ×3 (06:43→21:58)
[2021-07-17] MEDS: LEVOTHYROXINE SODIUM 50MCG TABLET PO SCH (06:43)
[2021-07-17 07:05] LABS: HEMATOCRIT. 27.4 % (36.0-48.0); HEMOGLOBIN. 9.2 g/dL (12.0-16.0); MEAN CORPUSCULAR HEMOGLOBIN 29.2 pg (28.0-32.0); MEAN CORPUSCULAR VOLUME 86.3 fL (81.0-99.0); MEAN PLATELET VOLUME 8.7 fl (7.4-10.4); PLATELET 202 x1000/uL (130-400); RED BLOOD CELL COUNT 3.17 mill/uL (4.2-5.4); RED CELL DISTRIBUTION WIDTH 13.5 % (11.6-14.6)
[2021-07-17] MEDS: CARVEDILOL 3.125 MG TABLET PO SCH ×2 (08:00→21:00)
[2021-07-17] MEDS ORDERED: LISINOPRIL 5MG TABLET PO SCH (09:00)
[2021-07-17] MEDS ORDERED: SPIRONOLACTONE 25MG TABLET PO SCH (09:00)
[2021-07-17] MEDS ORDERED: FUROSEMIDE 40MG TABLET PO SCH (09:00)
[2021-07-17] MEDS: POTASSIUM CHLORIDE 20MEQ TABLET SR PO SCH (09:00)
[2021-07-17] MEDS: ASPIRIN 81MG EC TABLET PO SCH (09:06)
[2021-07-17] MEDS: CLOPIDOGREL 75MG TABLET PO SCH (09:06)
[2021-07-17] MEDS ORDERED: HYDROCODONE/ACETAMINOPHEN 5/325MG TABLET PO PRN (11:00)
[2021-07-17] MEDS: TRAMADOL 50MG TABLET PO PRN (11:24)
[2021-07-17] MEDS ORDERED: GENTAMICIN 80MG PREMIX 100 ML IV SCH (16:00)
[2021-07-17] MEDS: ONDANSETRON HCL 4MG/2ML INJ IV PRN (16:03)
[2021-07-17] MEDS ORDERED: SODIUM CHLORIDE 0.9% 500 ML IV ONE (16:30)
[2021-07-17] MEDS: MEROPENEM 1,000 MG in SODIUM CHLORIDE 0.9% 100 ML IV SCH (16:54)
[2021-07-17 21:24] LABS: PLATELET ESTIMATE NORMAL
[2021-07-17] MEDS: ATORVASTATIN CALCIUM 20MG TABLET PO SCH (21:58)
[2021-07-18] VITALS (11 sets, daily range): BP systolic 102–140; BP diastolic 43–78
[2021-07-18] MEDS: ONDANSETRON HCL 4MG/2ML INJ IV PRN (04:07)
[2021-07-18] MEDS: MEROPENEM 1,000 MG in SODIUM CHLORIDE 0.9% 100 ML IV SCH ×2 (06:22→17:44)
[2021-07-18] MEDS: LEVOTHYROXINE SODIUM 50MCG TABLET PO SCH (06:22)
[2021-07-18] MEDS: SODIUM CHLORIDE 0.9% INJ 3ML FLUSH IVF SCH ×2 (06:23→14:00)
[2021-07-18] MEDS: CLOPIDOGREL 75MG TABLET PO SCH (08:08)
[2021-07-18] MEDS: CARVEDILOL 3.125 MG TABLET PO SCH (08:09)
[2021-07-18] MEDS: ASPIRIN 81MG EC TABLET PO SCH (08:09)
[2021-07-18] MEDS: SODIUM CHLORIDE 0.9% 1,000 ML IV SCH (11:19)
[2021-07-18] MEDS ORDERED: NALOXONE HCL 0.4MG/ML VIAL IV PRN (11:30)
[2021-07-18 16:31] LABS: HEMATOCRIT 27.1 % (36.0-48.0); HEMOGLOBIN 8.5 g/dL (12.0-16.0); MEAN CORPUSCULAR HEMOGLOBIN 27.3 pg (28.0-32.0); MEAN CORPUSCULAR VOLUME 86.8 fL (81.0-99.0); PLATELET 144 x1000/uL (130-400); RED BLOOD CELL COUNT 3.12 mill/uL (4.2-5.4); RED CELL DISTRIBUTION WIDTH 13.6 % (11.6-14.6)
[2021-07-18] MEDS: ATORVASTATIN CALCIUM 20MG TABLET PO SCH (20:57)
[2021-07-19] VITALS (14 sets, daily range): BP systolic 113–146; BP diastolic 63–82
[2021-07-19] MEDS: TRAMADOL 50MG TABLET PO PRN (01:26)
[2021-07-19] MEDS: MEROPENEM 1,000 MG in SODIUM CHLORIDE 0.9% 100 ML IV SCH ×2 (05:54→17:07)
[2021-07-19] MEDS: LEVOTHYROXINE SODIUM 50MCG TABLET PO SCH (05:54)
[2021-07-19] MEDS: CLOPIDOGREL 75MG TABLET PO SCH (08:42)
[2021-07-19] MEDS: ASPIRIN 81MG EC TABLET PO SCH (08:45)
[2021-07-19] MEDS: ACETAMINOPHEN 325MG TABLET PO PRN ×2 (08:56→22:40)
[2021-07-19] MEDS ORDERED: GUAIFENESIN-DM 200MG-20MG/10ML UDC PO PRN (17:15)
[2021-07-19] MEDS ORDERED: NYSTATIN 100000 UNIT/ML SSW SCH (18:00)
[2021-07-19] MEDS: NYSTATIN 100,000 UNITS/ML 5ML UDC SSW SCH (18:26)
[2021-07-19] MEDS: ATORVASTATIN CALCIUM 20MG TABLET PO SCH (21:29)
[2021-07-20] VITALS (12 sets, daily range): BP systolic 99–141; BP diastolic 54–85
[2021-07-20] MEDS: NYSTATIN 100,000 UNITS/ML 5ML UDC SSW SCH ×3 (00:15→12:33)
[2021-07-20] MEDS: MEROPENEM 1,000 MG in SODIUM CHLORIDE 0.9% 100 ML IV SCH ×2 (05:55→17:01)
[2021-07-20] MEDS: LEVOTHYROXINE SODIUM 50MCG TABLET PO SCH (05:55)
[2021-07-20 07:05] LABS: HEMOGLOBIN. 9.8 g/dL (12.0-16.0); MEAN CORPUSCULAR HEMOGLOBIN 28.4 pg (28.0-32.0); MEAN CORPUSCULAR VOLUME 84.3 fL (81.0-99.0); MEAN PLATELET VOLUME 9.3 fl (7.4-10.4); PLATELET 156 x1000/uL (130-400); RED BLOOD CELL COUNT 3.44 mill/uL (4.2-5.4); RED CELL DISTRIBUTION WIDTH 13.5 % (11.6-14.6)
[2021-07-20] MEDS: CLOPIDOGREL 75MG TABLET PO SCH (08:10)
[2021-07-20] MEDS: ASPIRIN 81MG EC TABLET PO SCH (08:12)
[2021-07-20 08:40] LABS: CHLORIDE 111 mEq/L (98-107)
[2021-07-20 12:59] LABS: PLATELET ESTIMATE NORMAL
[2021-07-20] MEDS: ACYCLOVIR 400 MG TABLET PO SCH ×3 (15:23→23:08)
[2021-07-20] MEDS: VISCOUS LIDOCAINE 2% 15 ML UDC MM PRN ×2 (15:23→22:35)
[2021-07-20] MEDS: ATORVASTATIN CALCIUM 20MG TABLET PO SCH (21:26)
[2021-07-21] VITALS (12 sets, daily range): BP systolic 111–136; BP diastolic 64–87
[2021-07-21] MEDS: MEROPENEM 1,000 MG in SODIUM CHLORIDE 0.9% 100 ML IV SCH ×2 (05:44→17:56)
[2021-07-21] MEDS: LEVOTHYROXINE SODIUM 50MCG TABLET PO SCH (05:55)
[2021-07-21 07:47] LABS: HEMATOCRIT. 30.4 % (36.0-48.0); HEMOGLOBIN. 10.4 g/dL (12.0-16.0); MEAN CORPUSCULAR HEMOGLOBIN 28.6 pg (28.0-32.0); MEAN CORPUSCULAR VOLUME 83.6 fL (81.0-99.0); MEAN PLATELET VOLUME 9.3 fl (7.4-10.4); PLATELET 162 x1000/uL (130-400); RED BLOOD CELL COUNT 3.64 mill/uL (4.2-5.4); RED CELL DISTRIBUTION WIDTH 13.2 % (11.6-14.6)
[2021-07-21] MEDS: VISCOUS LIDOCAINE 2% 15 ML UDC MM PRN ×2 (08:06→21:09)
[2021-07-21] MEDS: CLOPIDOGREL 75MG TABLET PO SCH (09:10)
[2021-07-21] MEDS: ASPIRIN 81MG EC TABLET PO SCH (09:11)
[2021-07-21] MEDS: ACYCLOVIR 400 MG TABLET PO SCH ×4 (09:11→21:09)
[2021-07-21] MEDS: ACETAMINOPHEN 325MG TABLET PO PRN ×2 (16:46→21:10)
[2021-07-21 20:36] LABS: PLATELET ESTIMATE NORMAL
[2021-07-21] MEDS: ATORVASTATIN CALCIUM 20MG TABLET PO SCH (21:09)
[2021-07-22] VITALS (15 sets, daily range): BP systolic 109–128; BP diastolic 58–86
[2021-07-22] MEDS: LEVOTHYROXINE SODIUM 50MCG TABLET PO SCH (06:00)
[2021-07-22] MEDS: MEROPENEM 1,000 MG in SODIUM CHLORIDE 0.9% 100 ML IV SCH ×3 (06:00→21:19)
[2021-07-22] MEDS: CLOPIDOGREL 75MG TABLET PO SCH (08:43)
[2021-07-22] MEDS: ASPIRIN 81MG EC TABLET PO SCH (08:43)
[2021-07-22] MEDS: ACYCLOVIR 400 MG TABLET PO SCH ×4 (08:43→21:19)
[2021-07-22] MEDS: VISCOUS LIDOCAINE 2% 15 ML UDC MM PRN (11:38)
[2021-07-22] MEDS: ACETAMINOPHEN 325MG TABLET PO PRN (20:10)
[2021-07-22] MEDS: ATORVASTATIN CALCIUM 20MG TABLET PO SCH (21:18)
[2021-07-23] VITALS (20 sets, daily range): BP systolic 100–131; BP diastolic 29–82
[2021-07-23] MEDS: LEVOTHYROXINE SODIUM 50MCG TABLET PO SCH (06:04)
[2021-07-23] MEDS: MEROPENEM 1,000 MG in SODIUM CHLORIDE 0.9% 100 ML IV SCH ×3 (06:04→21:57)
[2021-07-23] MEDS: ASPIRIN 81MG EC TABLET PO SCH (08:31)
[2021-07-23] MEDS: CLOPIDOGREL 75MG TABLET PO SCH (08:31)
[2021-07-23] MEDS: ACYCLOVIR 400 MG TABLET PO SCH ×4 (08:31→21:58)
[2021-07-23] MEDS: ACETAMINOPHEN 325MG TABLET PO PRN (13:36)
[2021-07-23] MEDS: ATORVASTATIN CALCIUM 20MG TABLET PO SCH (21:57)
[2021-07-24] VITALS (12 sets, daily range): BP systolic 111–133; BP diastolic 54–73
[2021-07-24] MEDS: LEVOTHYROXINE SODIUM 50MCG TABLET PO SCH (06:08)
[2021-07-24] MEDS: MEROPENEM 1,000 MG in SODIUM CHLORIDE 0.9% 100 ML IV SCH ×2 (06:08→13:41)
[2021-07-24] MEDS: ASPIRIN 81MG EC TABLET PO SCH (08:07)
[2021-07-24] MEDS: CLOPIDOGREL 75MG TABLET PO SCH (08:07)
[2021-07-24] MEDS: ACYCLOVIR 400 MG TABLET PO SCH ×3 (08:07→17:00)
[2021-07-24 08:27] LABS: BASOPHILS % 0.3 % (0.0-2.0); EOSINOPHILS % 1.1 % (0.0-5.0); HEMATOCRIT. 30.5 % (36.0-48.0); HEMOGLOBIN. 10.3 g/dL (12.0-16.0); LYMPHOCYTES % 16.2 % (20.0-50.0); MEAN CORPUSCULAR HEMOGLOBIN 28.5 pg (28.0-32.0); MEAN CORPUSCULAR VOLUME 84.3 fL (81.0-99.0); MONOCYTES % 9.5 % (2.0-8.0); NEUTROPHILS % 72.9 % (40.0-76.0); PLATELET 350 x1000/uL (130-400); RED BLOOD CELL COUNT 3.62 mill/uL (4.2-5.4); RED CELL DISTRIBUTION WIDTH 13.6 % (11.6-14.6)
[2021-07-24 08:31] LABS: CHLORIDE 108 mEq/L (98-107)
== END 2021-07-24 17:26 | disposition home health service (06) | DRG 854 ==
LOC: OR 09:37 → 3WST 20:00
PROVIDERS: ADMIT Internal Medicine; ATTEND Internal Medicine
PROC: 0T778DZ Dilation of Left Ureter with Intraluminal Device, Via Natural or Artificial Opening Endoscopic (ICD-10-PCS; principal; 2021-07-16)
PROC: 0TF78ZZ Fragmentation in Left Ureter, Via Natural or Artificial Opening Endoscopic (ICD-10-PCS; 2021-07-16)
PROC: BT17ZZZ Fluoroscopy of Left Ureter (ICD-10-PCS; 2021-07-16)
PROC: 05HY33Z Insertion of Infusion Device into Upper Vein, Percutaneous Approach (ICD-10-PCS; 2021-07-24)
PROC: B54MZZA Ultrasonography of Right Upper Extremity Veins, Guidance (ICD-10-PCS; 2021-07-24)
DX: A41.51 Sepsis due to Escherichia coli [E. coli] (principal); N13.2 Hydronephrosis with renal and ureteral calculous obstruction; I50.22 Chronic systolic (congestive) heart failure; I47.1 Supraventricular tachycardia; I42.0 Dilated cardiomyopathy; N17.9 Acute kidney failure, unspecified; D64.9 Anemia, unspecified; I11.0 Hypertensive heart disease with heart failure; E87.6 Hypokalemia; Z20.822 Contact with and (suspected) exposure to COVID-19; I25.10 Atherosclerotic heart disease of native coronary artery without angina pectoris; E11.9 Type 2 diabetes mellitus without complications; E83.42 Hypomagnesemia; Z95.810 Presence of automatic (implantable) cardiac defibrillator; Z98.61 Coronary angioplasty status; Z87.442 Personal history of urinary calculi
CPT/HCPCS: 36415; 71045; 74420; 76000; 76937; 80048; 83735; 85025; 85027; 87077; 87186; 87426; 93005; 93306; C1725; C1769; C2617; J0690; J0696; J1100; J1160; J1170; J1580; J2175; J2185; J2250; J2405; J2704; J3010; J3475; J3490; J7030; J7040; J7050; J7060

== ENCOUNTER → 2021-09-07 | Outpatient (CLI) | payer BC ==
[2021-09-07 11:13] LABS: CLARITY URINE CLEAR (CLEAR); COLOR URINE YELLOW (YELLOW); KETONES URINE NEGATIVE (NEGATIVE); LEUKOCYTE ESTERASE URINE 1+ (NEGATIVE); NITRITE URINE NEGATIVE (NEGATIVE); OCCULT BLOOD URINE 3+ (NEGATIVE); PROTEIN URINE NEGATIVE (NEGATIVE); SPECIFIC GRAVITY URINE 1.019 (1.005-1.030); UROBILINOGEN URINE 0.2 E.U./dL (0.2-1.0)
[2021-09-07 11:18] LABS: BASOPHILS % 0.5 % (0.0-2.0); EOSINOPHILS % 2.2 % (0.0-5.0); LYMPHOCYTES % 23.7 % (20.0-50.0); MEAN CORPUSCULAR HEMOGLOBIN 28.2 pg (28.0-32.0); MEAN CORPUSCULAR VOLUME 84.8 fL (81.0-99.0); MEAN PLATELET VOLUME 7.7 fl (7.4-10.4); MONOCYTES % 8.4 % (2.0-8.0); NEUTROPHILS % 65.2 % (40.0-76.0); PLATELET 373 x1000/uL (130-400); RED BLOOD CELL COUNT 3.89 mill/uL (4.2-5.4); RED CELL DISTRIBUTION WIDTH 13.9 % (11.6-14.6)
[2021-09-07 11:32] LABS: CHLORIDE 107 mEq/L (98-107)
[2021-09-07 11:40] LABS: LDL CHOLESTEROL 101 mg/dL (5-100)
[2021-09-07 11:42] LABS: HDL CHOLESTEROL 55 mg/dL (40-59)
[2021-09-07 12:28] LABS: VITAMIN B12 SERUM 700 pg/mL (211-911)
[2021-09-08 07:08] LABS: THYROID PEROXIDASE ANTIBODY < 8 IU/mL (0-34); VITAMIN D 25-OH 52.7 ng/mL (30.0-100.0)
== END | disposition home or self-care (01) ==
LOC: LAB 10:38
PROVIDERS: ATTEND Family Medicine
DX: Z00.00 Encounter for general adult medical examination without abnormal findings (principal); E03.9 Hypothyroidism, unspecified; E78.5 Hyperlipidemia, unspecified
CPT/HCPCS: 36415; 80053; 80061; 81003; 82306; 82607; 83036; 85025; 86376

== ENCOUNTER → 2021-11-24 | Outpatient (CLI) | payer BC ==
[2021-11-24 11:00] LABS: T4 FREE 0.87 ng/dL (0.76-1.46)
== END | disposition home or self-care (01) ==
LOC: LAB 10:14
PROVIDERS: ATTEND Family Medicine
DX: E11.65 Type 2 diabetes mellitus with hyperglycemia (principal); E03.9 Hypothyroidism, unspecified
CPT/HCPCS: 36415; 83036; 84439; 84443; 84481; 86376

== ENCOUNTER → 2022-03-17 | Outpatient (CLI) | payer BC ==
[2022-03-17 10:18] LABS: CHLORIDE 108 mEq/L (98-107)
[2022-03-17 10:25] LABS: HDL CHOLESTEROL 57 mg/dL (40-59); LDL CHOLESTEROL 95 mg/dL (5-100)
[2022-03-18 09:11] LABS: MICROALBUMIN RANDOM URINE 24.4 ug/mL (Not Estab.)
== END | disposition home or self-care (01) ==
LOC: LAB 09:05
PROVIDERS: ATTEND Family Medicine
DX: I10 Essential (primary) hypertension (principal); E78.5 Hyperlipidemia, unspecified; R73.03 Prediabetes
CPT/HCPCS: 36415; 80053; 80061; 82043; 82570; 83036

== ENCOUNTER → 2022-05-12 | Outpatient (CLI) | payer BC | END | disposition home or self-care (01) | LOC: MAMMO 09:10 | PROVIDERS: ATTEND Family Medicine | DX: Z12.31 Encounter for screening mammogram for malignant neoplasm of breast (principal) | CPT/HCPCS: 77067 ==

== ENCOUNTER → 2022-08-27 | Outpatient (CLI) | payer BC ==
[2022-08-27 09:36] LABS: BASOPHILS % 0.6 % (0.0-2.0); EOSINOPHILS % 2.4 % (0.0-5.0); HEMATOCRIT. 38.2 % (36.0-48.0); HEMOGLOBIN. 12.3 g/dL (12.0-16.0); LYMPHOCYTES % 22.1 % (20.0-50.0); MEAN CORPUSCULAR HEMOGLOBIN 27.1 pg (28.0-32.0); MEAN PLATELET VOLUME 8.4 fl (7.4-10.4); MONOCYTES % 9.7 % (2.0-8.0); NEUTROPHILS % 65.2 % (40.0-76.0); PLATELET 289 x1000/uL (130-400); RED BLOOD CELL COUNT 4.55 mill/uL (4.2-5.4); RED CELL DISTRIBUTION WIDTH 14.1 % (11.6-14.6)
[2022-08-27 09:43] LABS: CHLORIDE 106 mEq/L (98-107)
[2022-08-27 10:00] LABS: HDL CHOLESTEROL 60 mg/dL (40-59); LDL CHOLESTEROL 89 mg/dL (5-100); T4 FREE 0.97 ng/dL (0.76-1.46)
== END | disposition home or self-care (01) ==
LOC: LAB 09:02
PROVIDERS: ATTEND Family Medicine
DX: I10 Essential (primary) hypertension (principal); R73.03 Prediabetes; E78.5 Hyperlipidemia, unspecified; E03.9 Hypothyroidism, unspecified
CPT/HCPCS: 36415; 80053; 80061; 83036; 84439; 84443; 84481; 85025

== ENCOUNTER → 2023-04-28 | Outpatient (CLI) | payer BC ==
[2023-04-28 08:45] LABS: BASOPHILS % 0.3 % (0.0-2.0); EOSINOPHILS % 1.9 % (0.0-5.0); HEMOGLOBIN. 12.3 g/dL (12.0-16.0); LYMPHOCYTES % 24.9 % (20.0-50.0); MEAN CORPUSCULAR HEMOGLOBIN 26.8 pg (28.0-32.0); MEAN CORPUSCULAR HGB CONC 32.4 g/dL (31.0-37.0); MEAN CORPUSCULAR VOLUME 82.9 fL (81.0-99.0); MEAN PLATELET VOLUME 8.3 fl (7.4-10.4); MONOCYTES % 9.7 % (2.0-8.0); NEUTROPHILS % 63.2 % (40.0-76.0); PLATELET 324 x1000/uL (130-400); RED BLOOD CELL COUNT 4.59 mill/uL (4.2-5.4); RED CELL DISTRIBUTION WIDTH 14.9 % (11.6-14.6); WHITE BLOOD COUNT 8.9 x1000/uL (4.5-11.0)
[2023-04-28 09:37] LABS: CHLORIDE 106 mEq/L (98-107); INDEX HEMOLYSI 1 (1-3); INDEX ICTERIC 1 (1-4); INDEX LIPEMIC 1 (1-3); POTASSIUM 4.1 mEq/L (3.5-5.1); SODIUM 139 mEq/L (136-145)
[2023-04-28 09:53] LABS: ALANINE AMINOTRANSFERASE 25 IU/L (13-61); ALBUMIN 3.9 g/dL (3.4-5.0); ASPARTATE AMINOTRANSFERASE 18 IU/L (15-37); BILIRUBIN TOTAL 1.1 mg/dL (0.1-1.0); CALCIUM 8.7 mg/dL (8.5-10.1); CHOLESTEROL 173 mg/dL (<200); CREATININE 0.9 mg/dL (0.6-1.3); GLUCOSE 153 mg/dL (70-105); HDL CHOLESTEROL 61 mg/dL (40-59); LDL CHOLESTEROL 96 mg/dL (5-100); PROTEIN TOTAL 8.4 g/dL (6.0-8.3); T4 FREE 0.95 ng/dL (0.76-1.46); TRIGLYCERIDE 120 mg/dL (0-150); UREA NITROGEN BLOOD 12 mg/dL (7-21)
[2023-04-28 11:59] LABS: CARBON DIOXIDE 25 mEq/L (21-32)
== END | disposition home or self-care (01) ==
LOC: LAB 08:10
PROVIDERS: ATTEND Family Medicine
DX: I10 Essential (primary) hypertension (principal); E03.9 Hypothyroidism, unspecified; R73.09 Other abnormal glucose
CPT/HCPCS: 36415; 80053; 80061; 83036; 84439; 84443; 84481; 85025

== ENCOUNTER → 2023-09-27 | Outpatient (CLI) | payer BC ==
[~2023-09-27] MED LIST changes: +EMPA10TA PO
[2023-09-27 08:47] LABS: BASOPHILS % 0.4 % (0.0-2.0); HEMOGLOBIN. 12.3 g/dL (12.0-16.0); LYMPHOCYTES % 23.3 % (20.0-50.0); MEAN CORPUSCULAR HEMOGLOBIN 27.3 pg (28.0-32.0); MEAN CORPUSCULAR HGB CONC 32.3 g/dL (31.0-37.0); MEAN CORPUSCULAR VOLUME 84.3 fL (81.0-99.0); MEAN PLATELET VOLUME 8.2 fl (7.4-10.4); MONOCYTES % 8.9 % (2.0-8.0); NEUTROPHILS % 66.4 % (40.0-76.0); PLATELET 342 x1000/uL (130-400); RED BLOOD CELL COUNT 4.51 mill/uL (4.2-5.4); RED CELL DISTRIBUTION WIDTH 15.3 % (11.6-14.6); WHITE BLOOD COUNT 9.6 x1000/uL (4.5-11.0)
[2023-09-27 09:13] LABS: ALANINE AMINOTRANSFERASE 39 IU/L (10-49); ALBUMIN 4.6 g/dL (3.2-4.8); ASPARTATE AMINOTRANSFERASE 33 IU/L (<34); BILIRUBIN TOTAL 0.5 mg/dL (0.1-1.0); CARBON DIOXIDE 27 mEq/L (21-32); CHLORIDE 105 mEq/L (98-107); CHOLESTEROL 146 mg/dL (<200); CREATININE 0.9 mg/dL (0.6-1.0); GLUCOSE 105 mg/dL (70-105); HDL CHOLESTEROL 42 mg/dL (>65); LDL CHOLESTEROL 86 mg/dL (5-100); POTASSIUM 4.2 mEq/L (3.5-5.1); PROTEIN TOTAL 8.2 g/dL (6.0-8.3); SODIUM 139 mEq/L (136-145); T4 FREE 0.88 ng/dL (0.89-1.76); THYROID STIMULATING HORMONE 3.37 uIU/mL (0.55-4.78); TRIGLYCERIDE 106 mg/dL (0-150); UREA NITROGEN BLOOD 13 mg/dL (9-23)
[2023-09-28 17:06] LABS: *CREATININE RANDOM URINE 240.2 mg/dL (Not Estab.); MICROALBUMIN RANDOM URINE 16.8 ug/mL (Not Estab.)
== END | disposition home or self-care (01) ==
LOC: LAB 08:13
PROVIDERS: ATTEND Internal Medicine Endocrinology, Diabetes & Metabolism
DX: E11.9 Type 2 diabetes mellitus without complications (principal); E03.9 Hypothyroidism, unspecified; E78.00 Pure hypercholesterolemia, unspecified
CPT/HCPCS: 36415; 80053; 80061; 82043; 82570; 83036; 84439; 84443; 85025

== ENCOUNTER → 2023-12-12 | Outpatient (CLI) | payer BC ==
[2023-12-12 08:48] LABS: CARBON DIOXIDE 27 mEq/L (21-32); CHLORIDE 108 mEq/L (98-107); POTASSIUM 4.2 mEq/L (3.5-5.1); SODIUM 141 mEq/L (136-145)
[2023-12-12 08:49] LABS: CALCIUM 9.8 mg/dL (8.7-10.4)
[2023-12-12 08:53] LABS: CREATININE 0.8 mg/dL (0.6-1.0); GLUCOSE 95 mg/dL (70-105)
[2023-12-12 08:54] LABS: LDL CHOLESTEROL 71 mg/dL (5-100); TRIGLYCERIDE 95 mg/dL (0-150); UREA NITROGEN BLOOD 14 mg/dL (9-23)
[2023-12-12 08:55] LABS: ALANINE AMINOTRANSFERASE 27 IU/L (10-49); ALBUMIN 4.6 g/dL (3.2-4.8); ASPARTATE AMINOTRANSFERASE 25 IU/L (<34); CHOLESTEROL 132 mg/dL (<200); HDL CHOLESTEROL 44 mg/dL (>65)
[2023-12-12 08:56] LABS: BILIRUBIN TOTAL 0.5 mg/dL (0.1-1.0); PROTEIN TOTAL 7.5 g/dL (6.0-8.3)
[2023-12-12 08:58] LABS: T4 FREE 1.21 ng/dL (0.89-1.76); THYROID STIMULATING HORMONE 0.32 uIU/mL (0.55-4.78)
== END | disposition home or self-care (01) ==
LOC: LAB 08:10
PROVIDERS: ATTEND Internal Medicine Endocrinology, Diabetes & Metabolism
DX: E11.9 Type 2 diabetes mellitus without complications (principal); E55.9 Vitamin D deficiency, unspecified; E03.9 Hypothyroidism, unspecified; I10 Essential (primary) hypertension; E78.5 Hyperlipidemia, unspecified
CPT/HCPCS: 36415; 80053; 80061; 82306; 83036; 84439; 84443

== ENCOUNTER → 2023-12-16 | Outpatient (CLI) | payer BC | END | disposition home or self-care (01) | LOC: MAMMO 11:20 | PROVIDERS: ATTEND Internal Medicine Endocrinology, Diabetes & Metabolism | DX: Z12.31 Encounter for screening mammogram for malignant neoplasm of breast (principal); N63.20 Unspecified lump in the left breast, unspecified quadrant; N63.10 Unspecified lump in the right breast, unspecified quadrant | CPT/HCPCS: 77063; 77067 ==

== ENCOUNTER → 2024-03-13 | Outpatient (CLI) | payer BC ==
[2024-03-13 08:51] LABS: BASOPHILS % 0.4 % (0.0-2.0); EOSINOPHILS % 1.3 % (0.0-5.0); HEMATOCRIT. 40.4 % (36.0-48.0); HEMOGLOBIN. 13.4 g/dL (12.0-16.0); LYMPHOCYTES % 24.1 % (20.0-50.0); MEAN CORPUSCULAR HEMOGLOBIN 27.4 pg (28.0-32.0); MEAN CORPUSCULAR HGB CONC 33.1 g/dL (31.0-37.0); MEAN CORPUSCULAR VOLUME 82.7 fL (81.0-99.0); MEAN PLATELET VOLUME 8.3 fl (7.4-10.4); MONOCYTES % 7.9 % (2.0-8.0); NEUTROPHILS % 66.3 % (40.0-76.0); PLATELET 306 x1000/uL (130-400); RED BLOOD CELL COUNT 4.89 mill/uL (4.2-5.4); RED CELL DISTRIBUTION WIDTH 14.8 % (11.6-14.6); WHITE BLOOD COUNT 8.8 x1000/uL (4.5-11.0)
[2024-03-13 09:00] LABS: CHLORIDE 104 mEq/L (98-107); POTASSIUM 4.1 mEq/L (3.5-5.1); SODIUM 140 mEq/L (136-145)
[2024-03-13 09:01] LABS: CARBON DIOXIDE 29 mEq/L (21-32)
[2024-03-13 09:02] LABS: CALCIUM 9.5 mg/dL (8.7-10.4)
[2024-03-13 09:06] LABS: CREATININE 0.9 mg/dL (0.6-1.0); GLUCOSE 102 mg/dL (70-105); UREA NITROGEN BLOOD 13 mg/dL (9-23)
[2024-03-13 09:08] LABS: ALANINE AMINOTRANSFERASE 24 IU/L (10-49); ALBUMIN 4.9 g/dL (3.2-4.8); ASPARTATE AMINOTRANSFERASE 22 IU/L (<34)
[2024-03-13 09:09] LABS: BILIRUBIN TOTAL 0.5 mg/dL (0.1-1.0); PROTEIN TOTAL 8.1 g/dL (6.0-8.3)
[2024-03-13 09:12] LABS: T4 FREE 1.16 ng/dL (0.89-1.76); THYROID STIMULATING HORMONE 0.68 uIU/mL (0.55-4.78)
[2024-03-14 13:10] LABS: MICROALBUMIN RANDOM URINE 15.5 ug/mL (Not Estab.)
== END | disposition home or self-care (01) ==
LOC: LAB 08:12
PROVIDERS: ATTEND Internal Medicine Endocrinology, Diabetes & Metabolism
DX: I10 Essential (primary) hypertension (principal); E11.9 Type 2 diabetes mellitus without complications; E78.5 Hyperlipidemia, unspecified; E55.9 Vitamin D deficiency, unspecified; E03.9 Hypothyroidism, unspecified
CPT/HCPCS: 36415; 80053; 82043; 82306; 82570; 83036; 84439; 84443; 85025

== ENCOUNTER → 2024-07-19 | Outpatient (CLI) | payer BC ==
[2024-07-19 09:17] LABS: CHLORIDE 107 mEq/L (98-107); SODIUM 141 mEq/L (136-145)
[2024-07-19 09:18] LABS: CALCIUM 9.4 mg/dL (8.7-10.4); CARBON DIOXIDE 25 mEq/L (21-32)
[2024-07-19 09:23] LABS: CREATININE 0.8 mg/dL (0.6-1.0); GLUCOSE 125 mg/dL (70-105); TRIGLYCERIDE 97 mg/dL (0-150)
[2024-07-19 09:24] LABS: LDL CHOLESTEROL 92 mg/dL (5-100); UREA NITROGEN BLOOD 13 mg/dL (9-23)
[2024-07-19 09:25] LABS: ALANINE AMINOTRANSFERASE 19 IU/L (10-49); ALBUMIN 4.6 g/dL (3.2-4.8); ASPARTATE AMINOTRANSFERASE 18 IU/L (<34); CHOLESTEROL 165 mg/dL (<200); HDL CHOLESTEROL 55 mg/dL (>65)
[2024-07-19 09:26] LABS: BILIRUBIN TOTAL 0.5 mg/dL (0.1-1.0); PROTEIN TOTAL 7.9 g/dL (6.0-8.3)
[2024-07-19 09:27] LABS: T4 FREE 0.98 ng/dL (0.89-1.76)
[2024-07-19 09:28] LABS: THYROID STIMULATING HORMONE 1.43 uIU/mL (0.55-4.78)
[2024-07-19 09:33] LABS: BASOPHILS % 0.5 % (0.0-2.0); EOSINOPHILS % 3.6 % (0.0-5.0); HEMATOCRIT. 41.5 % (36.0-48.0); HEMOGLOBIN. 13.5 g/dL (12.0-16.0); LYMPHOCYTES % 22.2 % (20.0-50.0); MEAN CORPUSCULAR HEMOGLOBIN 27.5 pg (28.0-32.0); MEAN CORPUSCULAR HGB CONC 32.6 g/dL (31.0-37.0); MEAN CORPUSCULAR VOLUME 84.5 fL (81.0-99.0); MEAN PLATELET VOLUME 8.6 fl (7.4-10.4); MONOCYTES % 8.5 % (2.0-8.0); NEUTROPHILS % 65.2 % (40.0-76.0); PLATELET 315 x1000/uL (130-400); RED BLOOD CELL COUNT 4.91 mill/uL (4.2-5.4); RED CELL DISTRIBUTION WIDTH 14.9 % (11.6-14.6)
[2024-07-20 13:11] LABS: MICROALBUMIN RANDOM URINE 15.7 ug/mL (Not Estab.)
[2024-07-20 14:12] LABS: *CREATININE RANDOM URINE 69.9 mg/dL (Not Estab.)
== END | disposition home or self-care (01) ==
LOC: LAB 08:18
PROVIDERS: ATTEND Internal Medicine Endocrinology, Diabetes & Metabolism
DX: I10 Essential (primary) hypertension (principal); M13.89 Other specified arthritis, multiple sites; E11.9 Type 2 diabetes mellitus without complications; E78.5 Hyperlipidemia, unspecified; E03.9 Hypothyroidism, unspecified; Z95.0 Presence of cardiac pacemaker
CPT/HCPCS: 36415; 73030; 80053; 80061; 82043; 82570; 83036; 83695; 84439; 84443; 85025

== ENCOUNTER → 2024-10-19 | Outpatient (CLI) | payer BC ==
[2024-10-19 08:54] LABS: BASOPHILS % 0.4 % (0.0-2.0); EOSINOPHILS % 1.6 % (0.0-5.0); HEMATOCRIT. 41.3 % (36.0-48.0); HEMOGLOBIN. 13.5 g/dL (12.0-16.0); MEAN CORPUSCULAR HEMOGLOBIN 27.2 pg (28.0-32.0); MEAN CORPUSCULAR HGB CONC 32.5 g/dL (31.0-37.0); MEAN CORPUSCULAR VOLUME 83.6 fL (81.0-99.0); MEAN PLATELET VOLUME 8.1 fl (7.4-10.4); MONOCYTES % 8.8 % (2.0-8.0); NEUTROPHILS % 65.2 % (40.0-76.0); PLATELET 335 x1000/uL (130-400); RED BLOOD CELL COUNT 4.94 mill/uL (4.2-5.4); RED CELL DISTRIBUTION WIDTH 15.1 % (11.6-14.6); WHITE BLOOD COUNT 9.9 x1000/uL (4.5-11.0)
[2024-10-19 09:53] LABS: CALCIUM 8.8 mg/dL (8.7-10.4); CARBON DIOXIDE 28 mEq/L (21-32); CHLORIDE 105 mEq/L (98-107); POTASSIUM 3.7 mEq/L (3.5-5.1); SODIUM 140 mEq/L (136-145)
[2024-10-19 09:58] LABS: CREATININE 0.8 mg/dL (0.6-1.0); GLUCOSE 92 mg/dL (70-105)
[2024-10-19 09:59] LABS: LDL CHOLESTEROL 87 mg/dL (5-100); TRIGLYCERIDE 102 mg/dL (0-150); UREA NITROGEN BLOOD 14 mg/dL (9-23)
[2024-10-19 10:00] LABS: ALANINE AMINOTRANSFERASE 40 IU/L (10-49); ALBUMIN 4.5 g/dL (3.2-4.8); ASPARTATE AMINOTRANSFERASE 25 IU/L (<34); CHOLESTEROL 155 mg/dL (<200); HDL CHOLESTEROL 49 mg/dL (>65)
[2024-10-19 10:01] LABS: BILIRUBIN TOTAL 0.8 mg/dL (0.1-1.0); PROTEIN TOTAL 8.2 g/dL (6.0-8.3)
[2024-10-19 10:02] LABS: T4 FREE 1.12 ng/dL (0.89-1.76); THYROID STIMULATING HORMONE 0.86 uIU/mL (0.55-4.78)
[2024-10-20 07:12] LABS: *CREATININE RANDOM URINE 122.8 mg/dL (Not Estab.); MICROALBUMIN RANDOM URINE 18.3 ug/mL (Not Estab.)
== END | disposition home or self-care (01) ==
LOC: LAB 08:30
PROVIDERS: ATTEND Internal Medicine Endocrinology, Diabetes & Metabolism
DX: I10 Essential (primary) hypertension (principal); E11.9 Type 2 diabetes mellitus without complications; E55.9 Vitamin D deficiency, unspecified; E78.5 Hyperlipidemia, unspecified; E03.9 Hypothyroidism, unspecified
CPT/HCPCS: 36415; 80053; 80061; 82043; 82306; 82570; 83036; 84439; 84443; 85025

== ENCOUNTER → 2025-01-09 | Outpatient (CLI) | payer BC ==
[2025-01-09 08:30] LABS: BASOPHILS % 0.6 % (0.0-2.0); EOSINOPHILS % 1.3 % (0.0-5.0); HEMATOCRIT. 39.6 % (36.0-48.0); HEMOGLOBIN. 13.0 g/dL (12.0-16.0); LYMPHOCYTES % 27.0 % (20.0-50.0); MEAN PLATELET VOLUME 8.3 fl (7.4-10.4); MONOCYTES % 8.5 % (2.0-8.0); NEUTROPHILS % 62.6 % (40.0-76.0); PLATELET 294 x1000/uL (130-400); RED BLOOD CELL COUNT 4.71 mill/uL (4.2-5.4); RED CELL DISTRIBUTION WIDTH 15.3 % (11.6-14.6)
[2025-01-09 08:58] LABS: CREATININE 1.0 mg/dL (0.6-1.0)
[2025-01-09 08:59] LABS: LDL CHOLESTEROL 84 mg/dL (5-100); TRIGLYCERIDE 98 mg/dL (0-150); UREA NITROGEN BLOOD 13 mg/dL (9-23)
[2025-01-09 09:00] LABS: ASPARTATE AMINOTRANSFERASE 20 IU/L (<34)
[2025-01-09 09:01] LABS: BILIRUBIN TOTAL 0.4 mg/dL (0.1-1.0); PROTEIN TOTAL 7.3 g/dL (6.0-8.3)
[2025-01-09 09:04] LABS: T4 FREE 1.13 ng/dL (0.89-1.76)
== END | disposition home or self-care (01) ==
LOC: LAB 08:05
PROVIDERS: ATTEND Internal Medicine Endocrinology, Diabetes & Metabolism
DX: E11.9 Type 2 diabetes mellitus without complications (principal); E03.9 Hypothyroidism, unspecified; E78.00 Pure hypercholesterolemia, unspecified
CPT/HCPCS: 36415; 80053; 80061; 83036; 84439; 84443; 85025

== ENCOUNTER → 2025-04-03 | Outpatient (CLI) | payer BC ==
[2025-04-03 08:55] LABS: BASOPHILS % 0.5 % (0.0-2.0); EOSINOPHILS % 1.0 % (0.0-5.0); HEMATOCRIT. 42.5 % (36.0-48.0); HEMOGLOBIN. 13.6 g/dL (12.0-16.0); LYMPHOCYTES % 26.9 % (20.0-50.0); MEAN PLATELET VOLUME 8.4 fl (7.4-10.4); MONOCYTES % 8.4 % (2.0-8.0); NEUTROPHILS % 63.2 % (40.0-76.0); PLATELET 309 x1000/uL (130-400); RED BLOOD CELL COUNT 5.04 mill/uL (4.2-5.4); RED CELL DISTRIBUTION WIDTH 15.1 % (11.6-14.6)
[2025-04-03 09:02] LABS: CREATININE 0.8 mg/dL (0.6-1.0); TRIGLYCERIDE 123 mg/dL (0-150); UREA NITROGEN BLOOD 10 mg/dL (9-23)
[2025-04-03 09:03] LABS: LDL CHOLESTEROL 89 mg/dL (5-100)
[2025-04-03 09:04] LABS: ASPARTATE AMINOTRANSFERASE 15 IU/L (<34); BILIRUBIN TOTAL 0.6 mg/dL (0.1-1.0); PROTEIN TOTAL 7.8 g/dL (6.0-8.3)
[2025-04-03 09:06] LABS: T4 FREE 1.14 ng/dL (0.89-1.76)
[2025-04-04 13:08] LABS: *CREATININE RANDOM URINE 97.2 mg/dL (Not Estab.); MICROALBUMIN RANDOM URINE 8.4 ug/mL (Not Estab.); MICROALBUMIN/CREATININE RATIO 9.0 mg/g creat (0-29)
== END | disposition home or self-care (01) ==
LOC: LAB 08:22
PROVIDERS: ATTEND Internal Medicine Endocrinology, Diabetes & Metabolism
DX: I10 Essential (primary) hypertension (principal); E11.9 Type 2 diabetes mellitus without complications; E03.9 Hypothyroidism, unspecified; E55.9 Vitamin D deficiency, unspecified
CPT/HCPCS: 36415; 80053; 80061; 82043; 82306; 82570; 83036; 84439; 84443; 85025